=== PATIENT | female | born 1940 | race American Indian/Alaskan Native ===

== ENCOUNTER 2018-03-23 07:53 | Observation (INO) | payer MEDICARE ==
[2018-03-23] MEDS ORDERED: ECOTRIN PO ONE (08:50)
[2018-03-23] MEDS ORDERED: NACL 0.9% 500 ML 500 ML IV SCH (09:00)
[2018-03-23 09:26] LABS: Basophils % (Auto) 0.9 % (0.0-1.8); Eosinophils # (Auto) 0.1 K/mm3 (0.0-0.4); Eosinophils % (Auto) 2.2 % (0.0-4.3); Hematocrit 39.6 % (30.3-42.9); Hemoglobin 13.2 gm/dl (10.1-14.3); Lymphocytes # (Auto) 0.8 K/mm3 (1.2-5.4); Lymphocytes % (Auto) 15.7 % (13.4-35.0); Mean Corpuscular HGB Conc 33 % (30-34); Mean Corpuscular Hemoglobin 30 pg (28-32); Mean Corpuscular Volume 89 fl (79-97); Monocytes # (Auto) 0.3 K/mm3 (0.0-0.8); Monocytes % (Auto) 6.4 % (0.0-7.3); Platelet Count 167 K/mm3 (140-440); Red Blood Count 4.46 M/mm3 (3.65-5.03)
[2018-03-23 09:42] LABS: INR 0.89 (0.87-1.13)
[2018-03-23 10:15] LABS: BUN/Creatinine Ratio 27; Blood Urea Nitrogen 16 mg/dL (7-17); Calcium 9.6 mg/dL (8.4-10.2); Hemolysis Index 2
[2018-03-23] MEDS ORDERED: HEPARIN/NS 5000 UNIT/500ML(CATH LAB) 1,000 ML IR ONE (10:37)
[2018-03-23] MEDS ORDERED: HEPARIN 10,000 UNITS/10 ML ONE (10:37)
[2018-03-23] MEDS ORDERED: CALAN ONE (10:37)
[2018-03-23] MEDS ORDERED: NITROGLYCERIN SYRINGE 3 ML ONE (10:37)
[2018-03-23] MEDS ORDERED: SUBLIMAZE ONE (10:38)
[2018-03-23] MEDS ORDERED: VERSED ONE (10:38)
[2018-03-23] MEDS: XYLOCAINE 2% INFILTRATI ONE ×2 (11:23→11:43)
[2018-03-23] MEDS ORDERED: NACL 0.9% 50 ML ONE (11:29)
[2018-03-23] MEDS ORDERED: WATER FOR INJ (PF) 10 ML ONE (11:29)
[2018-03-23] MEDS: ANGIOMAX IV ONE ×2 (11:37→11:45)
[2018-03-23] MEDS ORDERED: EFFIENT PO ONE (12:09)
[2018-03-23] MEDS ORDERED: ALUM-MAG HYDROX-SIMETH 200-200-20MG/5ML ONE (12:21)
--- NOTE | 2018-03-23 12:22 | Cardiac Catherization Report ---
ADDENDUM I directly supervised the administration of moderate sedation with fentanyl and Versed from 11:20 a.m. to 12:10 p.m. JOB# [id number] SBM/[id number]
--- NOTE | 2018-03-23 12:28 | Cardiac Catherization Report ---
CARDIAC CATHETERIZATION REFERRING PHYSICIAN: Slava Rincon MD INDICATION FOR PROCEDURE: The patient is a very pleasant 77-year-old -Polish female, who has had recurrent chest pain, abnormal stress test with significant reversible apical ischemia. Multiple risk factors failed medical therapy, on beta blockade, continues to smoke. Options were given. The patient would like to proceed with heart catheterization. Risks, benefits, alternatives discussed. PROCEDURE IN DETAIL: The patient was brought to the catheterization lab in postoperative state, prepped and draped in sterile fashion. Ryan's test in right hand was normal. A 2 mL of 2% lidocaine used to anesthetize the right wrist. A standard 6-Namibian hydrophilic sheath used to cannulate the right radial artery via modified Seldinger technique. All exchanges performed to exchange a J-tip guidewire. JL3.5 catheter used to engage the left main. No dampening or ventricularization. Cineangiography performed in all projections. JR4 catheter used to cross the aortic valve under fluoroscopic guidance. Left ventriculography performed in MARTINEZ 30 and 30 KHADRA projections via hand injections, catheter flushed. Manual pullback performed with continuous pressure monitoring. Catheter used to engage the right coronary. No dampening or ventricularization. Cineangiography performed in all projections. Next, catheter removed from the body of wire. DATA: Aortic pressure is 140/60, LV pressure is 140. LVP of 15 mmHg. Left ventriculography reveals normal systolic performance with estimated ejection fraction of 55-60%. No evidence of aortic stenosis. CORONARY ANATOMY: This is a left dominant system. Right coronary is a small vessel, nondominant, has moderate intermediate disease throughout the mid segment of the maximal narrowing of approximately 50-60%, TONI 3 flow. Left main is a large vessel. No significant disease, bifurcates left anterior descending and left circumflex. Left circumflex is a large vessel, courses AV groove, gives off a large terminal OM trunk. This is a left PDA. There is a 90% stenosis in the mid segment of the left circumflex. LAD is a moderate sized vessel, courses anterior interventricular groove, wraps around the apex. Mild scattered luminal irregularities with maximal narrowing of 10-20% proximally. TONI 3 flow. No occlusive disease identified. Given the patient's stress test finding of significant apical ischemia in this left dominant left circumflex, 90% stenosis, failed medical management on antianginals, decided to proceed with PCI. Given severe tortuosity of the subclavian, we decided to change the groin approach. A 6-Namibian sheath placed in the right common femoral artery via modified Seldinger technique. Next, an EBU 3.5 guide used to engage left main without difficulty. A [place] wire was used to cross the lesion without difficulty. We predilated with 3.0 x 12 balloon at 8 LUL for 30 seconds. Next, used a 4.0 x 18 Resolute drug-eluting stent at 12 LUL for 30 seconds. Excellent angiographic result. Intravascular ultrasound was performed and multiple passes were made. This revealed a well-opposed and well expanded stent. Final angiogram reveals excellent result. No complications. CONCLUSIONS: 1. Severe single vessel coronary disease with a 90% culprit lesion in the mid left circumflex. 2. Successful IVUS guided PCI with placement of a drug-eluting stent (Resolute 4.0 x 18 with excellent final angiographic and ultrasonographic results. No complications noted. 3. Nonobstructive disease noted in the LAD and right coronary. 4. Preserved left ventricular systolic performance, estimated ejection fraction of 55-60%. 5. No evidence of aortic stenosis. 6. Normal LVEDP. At this point, continue with aggressive primary and secondary prevention measures. The patient needs to quit smoking. Blood pressure control. Aspirin, Effient, statin therapy. Results of procedure explained to the patient and her son. All questions addressed. The patient will be watched overnight. JOB# [id number] SBM/LU
[2018-03-23] MEDS ORDERED: APRESOLINE IV ONE (12:56)
[2018-03-23] MEDS ORDERED: NACL 0.9% 1000 ML 1,000 ML ONE (14:56)
[2018-03-23] MEDS ORDERED: NACL 0.9% 1000 ML 1,000 ML IV SCH ×2 (15:00→17:00)
[2018-03-23] MEDS ORDERED: NACL 0.9% 500 ML 500 ML IV ONE (15:33)
[2018-03-23 16:15] LABS: Hematocrit 37.8 % (30.3-42.9); Hemoglobin 12.9 gm/dl (10.1-14.3)
[2018-03-23] MEDS ORDERED: TYLENOL PO ONE (17:00)
--- NOTE | 2018-03-23 17:44 | Cat Scan Report ---
FINAL REPORT PROCEDURE: CT ABDOMEN PELVIS WO CON TECHNIQUE: Computerized axial tomography of the abdomen and pelvis was performed without intravenous contrast. This study is performed without intravascular contrast material and its sensitivity for abdominal and pelvic pathology, including neoplasms, inflammation, abscess, free fluid, thrombosis, arterial dissection and infarction, is reduced compared with a contrast enhanced study. DLP 656.75 mGy-cm. HISTORY: Abdominal pain. COMPARISON: No prior studies are available for comparison. FINDINGS: Visualized lower thorax: 3.5 x 2.5 cm low-attenuation lesion in the right cardiophrenic region, Hounsfield units suggest simple fluid. No discrete fat plane between this and the left atrium and adjacent esophagus. Coarse bibasilar opacities. 8.4 mm cyst with surrounding ground-glass opacity in the medial right lower lobe (image 7 series 2). Liver: 12 mm low-attenuation lesion about the dome of the liver. 3 mm granuloma in the right lobe of the liver. Spleen: 7.8 mm lesion with peripheral rim of can calcification and central low attenuation. Gallbladder and biliary system: Gallbladder is mildly distended, thick-walled and has subtle heterogeneous attenuation. Pancreas: Pancreatic duct mildly prominent. 2 mm calcification in the mid body of the pancreas. Pancreatic head is mildly prominent, limited evaluation on non contrasted examination.. Adrenals: Normal. Kidneys: Contrast seen in the collecting systems and ureters. 12 mm low-attenuation lesion in the superior pole of the left kidney GI tract: Appendix is air-filled and measures 6-7 mm. No significant surrounding inflammation. Small hiatal hernia. Fluid-filled stomach. The duodenum and jejunum appear mildly distended with small scattered air-fluid levels. Colonic diverticulosis. Lymph nodes and mesentery: A few mildly prominent mesenteric lymph nodes. One of the largest below level of the aortic bifurcation in the mid left abdomen measures 8.7 mm (image 87 series 2). Vasculature: Moderate atherosclerosis. Bladder: Contrast seen in the bladder. Reproductive organs: Hysterectomy. Peritoneum: No free fluid. Musculoskeletal structures: Mild L4-5 anterolisthesis. Mild L4-5 and L5-S1 disc bulges. Facet arthropathy and canal stenosis at these levels. Osteopenia. Moderate T9-10 disc space narrowing, endplate changes, and osteophytes. T10-11 vacuum disc change. Sclerosis of the bilateral sacroiliac joints, right greater than left. On the right more on the iliac side. Other: Fat filled umbilical hernia. IMPRESSION: Low-attenuation lesion in the right cardiophrenic region, Hounsfield units suggest simple fluid. This may represent a benign process such as pericardial cyst or enteric duplication cyst. Also consider adenopathy. Coarse bibasilar opacities with cyst with surrounding ground-glass opacity in the medial right lower lobe. Consider dedicated thoracic imaging with intravenous contrast for further characterization. Low-attenuation liver lesion, likely cyst or hemangioma. Low-attenuation renal lesion likely cyst. Splenic lesion with peripheral calcification and central low attenuation, may represent cyst or residual prior small hematoma. Gallbladder is mildly distended, thick-walled, and has subtle heterogeneous attenuation. Consider gallbladder sludge, infectious/inflammatory including cholecystitis/acalculous cholecystitis or even process such as hemorrhage. Recommend right upper quadrant ultrasound for further characterization. Pancreatic duct mildly prominent. Punctate pancreatic calcification. Pancreatic head is mildly prominent. Consider further evaluation including the examination with intravenous contrast if there is continued clinical concern. Small hiatal hernia. Prominent proximal small bowel, felt to more likely represent ileus or enteritis rather than obstruction. Consider attention on followup radiographs. Colonic diverticulosis. The appendix is top normal in caliber at 6-7 mm. No surrounding inflammation. There is overlap in the imaging appearance of normal and abnormal appendix. Consider further characterization with clinical correlation and examination with contrast if there is continued clinical concern. Degenerative changes of the spine. Consider sacroiliitis or osteitis condensans ilii. Fat filled umbilical hernia. Recent intravenous contrast administration as there is contrast in the collecting systems and bladder. Fat filled umbilical hernia.
--- NOTE | 2018-03-23 18:15 | Vascular Lab Report ---
Right lower extremity arterial duplex Reason for exam: Pseudoaneurysm after cardiac catheterization Comments: The right common femoral artery is patent. No evidence of significant hematoma is identified. The artery appear to be intact with no evidence of pseudoaneurysm formation. Flow velocities are biphasic and within normal limits. There is an area which appeared to be in the neck of the pseudoaneurysm is seen to leak any pocket outside of the vessel. Impression: No evidence of pseudoaneurysm formation the right common femoral artery.
--- NOTE | 2018-03-23 18:54 | Consultation ---
<NATACHAALEJANDRO SUAREZ - Last Filed: 03/23/18 18:48> History of Present Illness - Reason for Consult Consult date: 03/23/18 Evaluate for Possible Right Groin Pseudoaneurysm/Retroperitoneal Hematoma Requesting physician: EUGENIE SALCIDO - History of Present Illness This patient is a 77-year-old female that presented to [facility] for an elective left heart cath which was performed earlier today. She was noted to have severe single-vessel coronary disease with approximately 90% lesion in the mid left circumflex. This was angioplastied with a drug-eluting stent (resolute 4 x 18). Postoperatively she is monitored in the cardiac cath recovery room. She initially developed hypertension which was treated with hydralazine. She subsequently developed a sudden onset of hypotension with complaints of abdominal discomfort. A vascular surgery consult was requested to further evaluate. Patient complains of flatus and abdominal gas. Medications and Allergies Allergies Allergy/AdvReac Type Severity Reaction Status Date / Time No Known Allergies Allergy Unverified 03/23/18 07:53 Home Medications Medication Instructions Recorded Confirmed Last Taken Type Aspirin [Aspirin EC] 81 mg PO DAILY 03/23/18 03/23/18 03/22/18 History Cyanocobalamin (Vitamin B-12) 1,000 mcg PO QAM 03/23/18 03/23/18 03/22/18 History [Vitamin B-12] Aspirin [Aspirin BABY CHEW TAB] 81 mg PO QDAY tab.chew 03/24/18 Unknown Rx AtorvaSTATin [Lipitor] 40 mg PO QHS #30 tablet 03/24/18 Unknown Rx Metoprolol [Lopressor TAB] 12.5 mg PO BID tablet 03/24/18 Unknown Rx Prasugrel [Effient] 10 mg PO QDAY #30 tablet 03/24/18 Unknown Rx Active Meds: Active Medications Aspirin (Baby Aspirin) 81 mg PO QDAY ERIKA Sodium Chloride (Nacl 0.9% 500 Ml) 500 mls @ 50 mls/hr IV DIRECT ERIKA Stop: 03/23/18 18:59 Last Admin: 03/23/18 09:46 Dose: 50 mls/hr Sodium Chloride (Nacl 0.9% 1000 Ml) 1,000 mls @ 100 mls/hr IV DIRECT ERIKA Sodium Chloride (Nacl 0.9% 1000 Ml) 1,000 mls @ 100 mls/hr IV DIRECT ERIKA Metoprolol Tartrate (Lopressor) 12.5 mg PO BID ERIKA Prasugrel (Effient) 10 mg PO QDAY ERIKA Review of Systems All systems: negative Exam - Constitutional Vitals: Temp Pulse Resp BP Pulse Ox 97.8 F 80 16 137/89 100 03/23/18 12:27 03/23/18 18:22 03/23/18 18:22 03/23/18 18:22 03/23/18 18:22 General appearance: Present: no acute distress - EENT Eyes: Present: EOM intact ENT: hearing intact - Neck Neck: Present: supple - Respiratory Respiratory effort: normal - Cardiovascular Heart rate: 55 Rhythm: regular - Extremities Extremities: no ischemia (all extremities were warm and appear to be adequately perfused), normal temperature, abnormal (she has a pressure dressing over the right groin) - Abdominal General gastrointestinal: Present: soft, tender (she complains of diffuse tenderness to palpation) - Psychiatric Psychiatric: appropriate mood/affect, intact judgment & insight, cooperative - Neurologic Neurologic: no focal deficits Results - Labs CBC & Chem 7: 03/23/18 Unknown 03/23/18 Unknown Labs: Abnormal lab results 03/23/18 03/23/18 Range/Units Unknown Unknown Lymph # 0.8 L (1.2-5.4) K/mm3 Seg Neutrophils % 74.8 H (40.0-70.0) % Potassium 5.2 H (3.6-5.0) mmol/L Creatinine 0.6 L (0.7-1.2) mg/dL Assessment and Plan This patient presented for an elective left heart cath with subsequent intervention and balloon angioplasty and deployment of drug-eluting stent to the mid left circumflex coronary artery. Postoperatively in the recovery room she developed sudden onset of hypotension with abdominal pain. A vascular surgery consult was requested to further evaluate. A stat CBC, vascular lab ultrasound of the right groin (access site), and noncontrasted CT scan of the abdomen and pelvis were ordered. The patient did not appear to be anemic. The vascular lab did not show a pseudoaneurysm. And the CT scan of the abdomen and pelvis did not reveal a retroperitoneal hematoma. Her blood pressure has continued to improve, and the patient has been admitted to telemetry for continued observation - Patient Problems (1) Coronary artery disease Current Visit: Yes Status: Acute <HERNESTO GARCIA - Last Filed: 03/24/18 12:54> History of Present Illness - History of Present Illness Seen at the same time and agree. Medications and Allergies Active Meds: Active Medications Aspirin (Baby Aspirin) 81 mg PO QDAY [facility] Last Admin: 03/24/18 12:16 Dose: 81 mg Atorvastatin Calcium (Lipitor) 40 mg PO QHS [facility] Sodium Chloride (Nacl 0.9% 1000 Ml) 1,000 mls @ 100 mls/hr IV DIRECT [facility] Last Admin: 03/24/18 02:57 Dose: 100 mls/hr Sodium Chloride (Nacl 0.9% 1000 Ml) 1,000 mls @ 100 mls/hr IV DIRECT ERIKA Metoprolol Tartrate (Lopressor) 12.5 mg PO BID [facility] Last Admin: 03/23/18 23:24 Dose: 12.5 mg Prasugrel (Effient) 10 mg PO QDAY [facility] Last Admin: 03/24/18 12:16 Dose: 10 mg Exam - Constitutional Vitals: Temp Pulse Resp BP Pulse Ox 97.9 F 55 L 18 132/55 100 03/24/18 07:27 03/24/18 07:27 03/24/18 07:27 03/24/18 07:27 03/24/18 07:27 Results - Labs CBC & Chem 7: 03/24/18 06:05 03/24/18 06:05 Labs: Abnormal lab results 03/23/18 03/23/18 03/24/18 Range/Units 11:51 19:15 06:05 Lymph # 1.1 L (1.2-5.4) K/mm3 Seg Neutrophils % 77.0 H (40.0-70.0) % Activated Clotting Time 356 H (74-137) Chloride (98-107) mmol/L Carbon Dioxide (22-30) mmol/L Creatinine (0.7-1.2) mg/dL POC Glucose 174 H (70-105) CK-MB (CK-2) (0.0-4.0) ng/mL 03/24/18 Range/Units 06:05 Lymph # (1.2-5.4) K/mm3 Seg Neutrophils % (40.0-70.0) % Activated Clotting Time (74-137) Chloride 107.8 H (98-107) mmol/L Carbon Dioxide 21 L D (22-30) mmol/L Creatinine 0.5 L (0.7-1.2) mg/dL POC Glucose (70-105) CK-MB (CK-2) 5.5 H (0.0-4.0) ng/mL
[2018-03-23] MEDS ORDERED: LOPRESSOR PO SCH (22:00)
[2018-03-24 06:39] LABS: Basophils % (Auto) 0.5 % (0.0-1.8); Eosinophils % (Auto) 0.7 % (0.0-4.3); Hematocrit 36.4 % (30.3-42.9); Hemoglobin 12.4 gm/dl (10.1-14.3); Lymphocytes # (Auto) 1.1 K/mm3 (1.2-5.4); Lymphocytes % (Auto) 16.3 % (13.4-35.0); Mean Corpuscular HGB Conc 34 % (30-34); Mean Corpuscular Hemoglobin 30 pg (28-32); Mean Corpuscular Volume 88 fl (79-97); Monocytes # (Auto) 0.4 K/mm3 (0.0-0.8); Monocytes % (Auto) 5.5 % (0.0-7.3); Platelet Count 154 K/mm3 (140-440); Red Blood Count 4.13 M/mm3 (3.65-5.03); Red Cell Distribution Width 14.1 % (13.2-15.2)
[2018-03-24 07:04] LABS: BUN/Creatinine Ratio 28; Blood Urea Nitrogen 14 mg/dL (7-17); Calcium 8.5 mg/dL (8.4-10.2); Hemolysis Index 21
[2018-03-24 07:06] LABS: Creatine Kinase MB 5.5 ng/mL (0.0-4.0)
--- NOTE | 2018-03-24 08:26 | XRay Report ---
PORTABLE CHEST INDICATION: Post PCI. COMPARISON: None similar. FINDINGS: Portable, frontal chest radiograph suggests top normal heart size. Aortic knob calcifications. Clear lungs. EKG leads. Few bony degenerative changes. CONCLUSION: No acute significant process, as described. Thank you for the opportunity to participate in this patient's care.
[2018-03-24 08:37] VITALS: BP 132/55
[2018-03-24] MEDS ORDERED: EFFIENT PO SCH (10:00)
[2018-03-24] MEDS ORDERED: BABY ASPIRIN PO SCH (10:00)
--- NOTE | 2018-03-24 10:30 | Short Stay Summary ---
Short Stay Documentation Date of service: 03/23/18 - History H&P: obtained from office - Allergies and Medications Current Medications: Allergies No Known Allergies Allergy (Unverified 03/23/18 07:53) Home Medications Medication Instructions Recorded Confirmed Last Taken Type Aspirin [Aspirin EC] 81 mg PO DAILY 03/23/18 03/23/18 03/22/18 History Cyanocobalamin (Vitamin B-12) 1,000 mcg PO QAM 03/23/18 03/23/18 03/22/18 History [Vitamin B-12] Active Medications Aspirin (Baby Aspirin) 81 mg PO QDAY [facility] Sodium Chloride (Nacl 0.9% 1000 Ml) 1,000 mls @ 100 mls/hr IV DIRECT [facility] Last Admin: 03/24/18 02:57 Dose: 100 mls/hr Sodium Chloride (Nacl 0.9% 1000 Ml) 1,000 mls @ 100 mls/hr IV DIRECT ERIKA Metoprolol Tartrate (Lopressor) 12.5 mg PO BID [facility] Last Admin: 03/23/18 23:24 Dose: 12.5 mg Prasugrel (Effient) 10 mg PO QDAY [facility] - Physical exam General appearance: no acute distress Integumentary: no rash, no growths, no abnormal pigmentation HEENT: Atraumatic, PERRLA Lungs: Clear to auscultation Heart: Regular rate, Normal S1, Normal S2 Gastrointestinal: normal, normoactive bowel sounds Extremities: no ischemia (all extremities were warm and appear to be adequately perfused), pulses intact, pulses symmetrical, normal temperature Neurological: Normal gait, Normal speech, Strength at 5/5 X4 ext - Brief post op/procedure progress note Date of procedure: 03/23/18 Pre-op diagnosis: recurrent chest pain, abnormal stress test Post-op diagnosis: other (CAD) Procedure: LHC with PCI - see dictated cath report Anesthesia: local Estimated blood loss: none Condition: stable - Hospital course Hospital course: Pt presented for elective LHC and subsequently underwent PCI of LCX. Following her PCI, she developed hypertension which was treated with IV hydralazine. She subsequently developed right groin LHC site oozing and a sudden onset of hypotension with complaints of abdominal discomfort and vascular surgery consultation was obtained for further evaluation. A stat CBC, vascular lab ultrasound of the right groin (access site), and noncontrasted CT scan of the abdomen and pelvis were ordered. The patient did not appear to be anemic. The vascular lab did not show a pseudoaneurysm. And the CT scan of the abdomen and pelvis did not reveal a retroperitoneal hematoma. No intervention was required per vascular surgery team. Pt's BPs improved overnight and H/H remained stable. Pt is currently clinically stable for discharge home. - Disposition Condition at discharge: Stable Disposition: DC-01 TO HOME OR SELFCARE - Discharge Diagnoses (1) Coronary artery disease Status: Chronic (2) Stented coronary artery Status: Chronic Short Stay Discharge Plan Activity: advance as tolerated Diet: low fat, low cholesterol, low salt Wound: open to air, keep clean and dry, per your surgeon's advice Follow up with: MAGNOLIA WAGNER MD [Primary Care Provider] - 7 Days EUGENIE SALCIDO MD [Staff Physician] - 7 Days ([facility], 05/05/2018 @ 2: 00PM) Prescriptions: AtorvaSTATin [Lipitor] 40 mg PO QHS #30 tablet Prasugrel [Effient] 10 mg PO QDAY #30 tablet
== END 2018-03-24 13:15 | disposition home or self-care (01) ==
LOC: CATHLABREC 07:53 → 4A 14:25
PROVIDERS: ADMIT Internal Medicine; ATTEND Internal Medicine
DX: I25.10 Atherosclerotic heart disease of native coronary artery without angina pectoris (principal)
CPT/HCPCS: 36415; 71045; 74176; 80048; 82550; 82553; 82962; 84484; 85014; 85018; 85025; 85347; 85610; 85730; 92978; 93005; 93010; 93458; 93926; 96374; C1725; C1753; C1769; C1874; C1887; C1894; C9600; G0378; J0360; J0583; J1644; J2250; J3010; J7030; J7040; 92928; Q9967